=== PATIENT | male | born 1960 | race Caucasian/White ===

== ENCOUNTER 2022-01-21 00:02 | Emergency (ER) | payer OTHER ==
[~2022-01-21] VITALS: Ht 170.2 cm; Wt 73.0 kg
[2022-01-21] MEDS ORDERED: ACETAMINOPHEN 325MG TABLET PO ONE (01:45)
[2022-01-21 03:29] LABS: EOSINOPHILS % 3.9 % (0.0-5.0); HEMATOCRIT. 41.1 % (42.0-52.0); HEMOGLOBIN. 13.9 g/dL (14.0-18.0); LYMPHOCYTES % 13.2 % (20.0-50.0); MEAN CORPUSCULAR HEMOGLOBIN 32.9 pg (28.0-32.0); MEAN CORPUSCULAR VOLUME 97.3 fL (80.0-94.0); MEAN PLATELET VOLUME 7.6 fl (7.4-10.4); MONOCYTES % 9.4 % (2.0-8.0); NEUTROPHILS % 72.5 % (40.0-76.0); PLATELET 202 x1000/uL (130-400); RED BLOOD CELL COUNT 4.22 mill/uL (4.7-6.1); RED CELL DISTRIBUTION WIDTH 13.5 % (11.6-14.6)
[2022-01-21 03:30] VITALS: BP 124/91
[2022-01-21] MEDS ORDERED: IBUP-2029 MT (04:07)
[2022-01-21] MEDS ORDERED: ONDA4TAB5 MT (04:07)
[2022-01-21] MEDS ORDERED: CEPH500C2 MT (04:07)
[2022-01-21] MEDS ORDERED: TAMS-11 MT (04:07)
[2022-01-21] MEDS ORDERED: TAMSULOSIN HCL 0.4MG SR CAPSULE PO ONE (04:15)
[2022-01-21] MEDS ORDERED: CEPHALEXIN 250MG CAPSULE PO ONE (04:15)
== END 2022-01-21 04:55 | disposition home or self-care (01) ==
LOC: ER 00:02
DX: N13.2 Hydronephrosis with renal and ureteral calculous obstruction (principal); N17.9 Acute kidney failure, unspecified; E78.00 Pure hypercholesterolemia, unspecified
CPT/HCPCS: 36415; 74176; 80048; 85025; 99284; A4315